=== PATIENT | male | born 1960 | race Caucasian/White ===

== ENCOUNTER → 2016-10-12 | Outpatient (CLI) | payer SELFPAY ==
[~2016-10-12] MED LIST: ASPIRIN E.C. 8181 MG PO; CARDIZEM CD 24240 MG PO; CARDIZEM CD240 MG PO; CARDIZEM LA240 MG PO; CARDIZEM60 MG PO; CARTIA XT240 MG PO; CLINDAMYCIN300 MG PO; COREG 25MG25 MG/TAB PO; COREG12.5 MG PO; COREG6.25 MG PO; COUMADIN 77.5 MG/TAB PO; COUMADIN10 MG PO; COUMADIN7.5 MG PO; HYDROCORTISO28.35 GM TOP; LASIX 20MG TABL20 MG PO; LOVENOX100 MG/ML SQ; NO HOME MEDICATIONS; NORCO 325 MG-51 TAB PO; PACERONE200 MG PO; PRADAXA 150MG150 MG PO; PRINIVIL10 MG PO; ZESTRIL 10MG10 MG PO; ZESTRIL5 MG PO
== END ==
LOC: COL.VAS 08:59
DX: I48.0 Paroxysmal atrial fibrillation (principal); R00.1 Bradycardia, unspecified; R00.0 Tachycardia, unspecified; I49.3 Ventricular premature depolarization

== ENCOUNTER → 2016-10-29 | Outpatient (CLI) | payer SELFPAY ==
[~2016-10-29] VITALS: Ht 190.7 cm; Wt 330.0 kg
== END ==
LOC: COL.CARD 10:18
DX: R06.02 Shortness of breath (principal)